=== PATIENT | female | born 1995 | race Caucasian/White ===

== ENCOUNTER 2018-01-16 09:44 | Emergency (ER) | payer MEDICAID ==
[2018-01-16 11:17] LABS: URINE BLOOD (Dip) POC Negative (NEGATIVE); URINE GLUCOSE (Dip) POC Negative (NEGATIVE); URINE KETONES (Dip) POC Negative (NEGATIVE); URINE LEUKOCYTE EST (Dip) POC Negative (NEGATIVE); URINE NITRITE (Dip) POC Negative (NEGATIVE); URINE TOTAL PROTEIN POC Negative (NEGATIVE)
[2018-01-16] MEDS: KETOROLAC 60 MG INJ IM (11:35)
== END 2018-01-16 12:28 | disposition home or self-care (01) ==
LOC: FTE 09:44
DX: M54.9 Dorsalgia, unspecified (principal)
CPT/HCPCS: 81003; 81025; 96372; 99284-25

== ENCOUNTER 2018-06-01 11:25 | Emergency (ER) | payer SELFPAY, MEDICAID ==
[2018-06-01] MEDS: ACETAMINOPHEN 500 MG TAB PO (15:12)
[2018-06-01] MEDS: KETOROLAC 30 MG INJ IM (15:12)
== END 2018-06-01 16:16 | disposition home or self-care (01) ==
LOC: FTE 11:25
DX: J02.9 Acute pharyngitis, unspecified (principal)
CPT/HCPCS: 81025; 87400; 96372; 99284-25